=== PATIENT | female | born 1935 | race Caucasian/White ===

== ENCOUNTER 2016-10-05 07:23 | Emergency (ER) | payer OTHER, MEDICARE ==
[~2016-10-05] VITALS: Ht 162.6 cm; Wt 63.1 kg
[~2016-10-05 07:23] MED LIST: ACET-1256 PO; CYAN10004 PO; EFFSR150 PO; LEVO100T PO; METR500T PO; MULT-506 PO; NRNUNK PO; PANT40TA PO; PRED-301 PO; SIMV20TA2 PO; [UNRECOGNIZED DRUG - OTHER] PO
[2016-10-05 07:25] VITALS: Ht 162.6 cm; Wt 63.1 kg
[2016-10-05] MEDS ORDERED: BISA10SU38 PR (08:27)
[2016-10-05] MEDS ORDERED: SALI0.6510 NAE (08:27)
[2016-10-05] MEDS ORDERED: CHOL100010 PO (08:27)
[2016-10-05] MEDS ORDERED: CYCL0.052 OP (08:27)
[2016-10-05] MEDS ORDERED: LEVO88TA PO (08:27)
[2016-10-05] MEDS ORDERED: LOSA1TAB PO (08:27)
[2016-10-05] MEDS ORDERED: FLV400 PO (08:27)
[2016-10-05] MEDS ORDERED: SIMV40TA4 PO (08:27)
[2016-10-05] MEDS ORDERED: ASCA500 PO (08:27)
[2016-10-05] MEDS ORDERED: CYAN1TAB2 PO (08:27)
[2016-10-05] MEDS ORDERED: SIME1CAP37 PO (08:27)
[2016-10-05] MEDS ORDERED: CALC1CHW2 PO (08:27)
[2016-10-05] MEDS ORDERED: PRD/1 PO (08:27)
[2016-10-05] MEDS ORDERED: VENL150T33 PO (08:27)
[2016-10-05] MEDS ORDERED: BUDE32SU3 NAE (08:27)
[2016-10-05] MEDS ORDERED: OPTIRAY 320 IV PRN (08:45)
[2016-10-05 08:55] LABS: BASO % 0.5 %; BASO ABS # 0.03 K/uL (0-0.2); COMPLETE YES; EOS % 2.4 %; HEMATOCRIT 42.6 % (37-47); IG% 0.3 %; LYMPH % 18.4 %; LYMPH ABS # 1.14 K/uL (1.2-3.4); MEAN CELL VOLUME 95.9 fL (80-100); MEAN CORPUSCULAR HEMOGLOBIN 31.8 pg (25-34); MEAN CORPUSCULAR HGB CONC 33.1 g/dl (32-36); MEAN PLATELET VOLUME 10.8 fL (7.4-10.4); MONO % 9.7 %; NEUT % 68.7 %; PLATELET COUNT 218 K/uL (130-400); RED BLOOD COUNT 4.44 M/uL (4.2-5.4); WHITE BLOOD COUNT 6.21 K/uL (4.8-10.8)
[2016-10-05 09:13] LABS: ALT/SGPT 20 U/L (12-78); BLOOD UREA NITROGEN 11 mg/dl (7-18); BUN/CREATININE RATIO 11.3 (10-20); CALCIUM 9.7 mg/dl (8.5-10.1); CARBON DIOXIDE 31 mmol/L (21-32); CHLORIDE 105 mmol/L (98-107); GLUCOSE 84 mg/dl (70-99); POTASSIUM 3.5 mmol/L (3.5-5.1); SODIUM 141 mmol/L (136-145)
[2016-10-05 09:16] LABS: PROTHROMBIN TIME (PATIENT) 10.3 SECONDS (9.0-12.0)
[2016-10-05 09:17] LABS: ALB/GLOB RATIO 0.9 (0.9-2); ALKALINE PHOSPHATASE 76 U/L (45-117); AST/SGOT 14 U/L (15-37)
[2016-10-05 09:35] LABS: URINE APPEARANCE CLOUDY (CLEAR); URINE COLOR DK YELLOW; URINE NITRITE NEG (NEG); URINE SPECIFIC GRAVITY 1.022 (1.000-1.030); UROBILINOGEN NEG (NEG)
[2016-10-05 09:40] LABS: MANUAL MICROSCOPIC REQUIRED? NO; REVIEW REQ? YES; URINE BILIRUBIN NEG (NEG)
[2016-10-05 09:54] LABS: URINE MUCUS PRESENT (NONE PRSENT); URINE PATH CASTS 0-3 GRANULAR CASTS /lpf (0)
--- NOTE | 2016-10-05 11:00 | DIAGNOSTIC IMAGING REPORT ---
CT OF THE ABDOMEN AND PELVIS WITH CONTRAST CLINICAL HISTORY: Abdominal pain and constipation. Diverticulitis. COMPARISON STUDY: CT of the abdomen and pelvis June 12, 2011. TECHNIQUE: Following IV administration of 93 mL of Optiray-320, axial images of the abdomen and pelvis were obtained from the lung bases to the proximal femurs. Images were reviewed in the axial, sagittal, and coronal planes. IV contrast was administered without complication. Oral contrast was administered. CT DOSE: 293.27 mGy.cm FINDINGS: Visualized portions of the lower chest demonstrate stable mild dilatation of visualized portions of the ascending aorta, measuring 3.8 cm. A few subcentimeter hypodense hepatic lesions are too small to characterize but were present on prior exams and are considered benign. The spleen, adrenal glands, kidneys and pancreas are normal. There is no evidence for a bowel obstruction. There is extensive sigmoid diverticulosis without evidence of acute diverticulitis. The appendix is not visualized. No suspicious skeletal lesions are identified. There is no hydronephrosis. Evaluation of the upper abdomen is mildly compromised by motion artifact. There is moderate atherosclerotic plaque of the abdominal aorta. Major mesenteric vessels appear patent. Sensitivity for detection of bowel mucosal lesions is decreased given CT technique but none are identified. IMPRESSION: 1. No acute process within the abdomen or pelvis. 2. Colonic diverticulosis without evidence for acute diverticulitis. 3. No bowel obstruction. 4. No significant fecal retention. Electronically signed by: Patrice Short M.D. 10/05/2016 10:58 AM Dictated Date/Time: 10/05/2016 10:48 AM
[2016-10-05] MEDS ORDERED: CEFTRIAXONE SOD INJ 1 GM ADDVIAL IV STA (11:44)
--- NOTE | 2016-10-05 12:09 | EMERGENCY ROOM VISIT NOTE ---
History Report prepared by Kassi: Jamarcus Levi Under the Supervision of: Dr. Arleen Mcgee D.O. First contact with patient: 07:38 Chief Complaint: GI ASSESSMENT Stated Complaint: BLOCKED BOWEL,DIVERICULITIS Nursing Triage Summary: No BM since September 29, has tried several medications without luck. Today when pt urinated she noticed blood, unsure if vaginal or urinary in nature. C/O " outside of vagina pain". History of Present Illness The patient is a 81 year old female who presents to the Emergency Room with complaints of constant constipation starting September 29. The patient states that she has a history of Diverticulitis and had been experiencing abdominal pain on September 29. She states that she called her primary care physician, Dr. Lira , the following day, but admits that she could not get an appointment until October 01. The patient reports that during her visit she had x rays and blood work done, which showed normal blood work and constipation. The patient states that she went on a liquid diet for 2-3 days following her appointment, per Dr. Lira's suggestion, until her abdominal pain ceased. The patient also reports that she has taken Gas-x and Bisac-Evac but denies any relief of symptoms. She states that since yesterday she has been experiencing hematuria and genital pain. The patient reports that she has a chronic abdominal bloating , which she has had CT scans and ultrasounds done for it, but they showed no significant results. She states that she has congestion in her head and has been experiencing a cough for years. The patient admits that she had an appendectomy at age 9. She states that she typically wears a pad due to urinary leakage. The patient denies previous constipation, fevers chills, change in appetite, nausea, and SOB. Source of History: patient Onset: September 29 Position: abdomen Quality: other (constipation) Timing: constant Modifying Factors (Relieving): other (Gas-X, Bivac-Evac) Associated Symptoms: + cough, + urinary symptoms, No fevers, No chills, No SOB, No nausea, No vomiting Review of Systems See HPI for pertinent positives & negatives. A total of 10 systems reviewed and were otherwise negative. Past Medical & Surgical Medical Problems: (1) Chronic cough (2) Depression (3) Hemorrhoids (4) Hypothyroid (5) IBS (irritable bowel syndrome) (6) Polymyalgia rheumatica Surgical Problems: (1) History of appendectomy Family History Arrhythmia FH: colon cancer FH: diabetes mellitus FH: heart disease FH: myocardial infarction FHx: dementia GERD Social History Smoking Status: Never Smoker Smokeless Tobacco Use: No Alcohol Use: none Drug Use: none Marital Status: Housing Status: lives with significant other Occupation Status: retired Current/Historical Medications Scheduled Ascorbic Acid (Vitamin C), 500 MG PO DAILY Budesonide (Nasal) (Budesonide Nasal [place]), 2 SPRAYS ROB DAILY Calcium Carbonate-Vitamin D (Caltrate 600+D 600-400 mg-Unit), 1 TAB PO DIRECTED Cephalexin (Keflex), 1 CAP PO BID Cholecalciferol (Vitamin D), 1,000 UNITS PO DAILY Cyanocobalamin (B-12), 100 MCG PO DAILY Cyclosporine (Ophth) (Restasis), 1 DROP OP DIRECTED Folic Acid (Folic Acid), 400 MCG PO DIRECTED Levothyroxine Sodium (Synthroid), 88 MCG PO DAILY Losartan Potassium (Cozaar), 12.5 MG PO DAILY Multivitamin (Multivitamin), 1 TAB PO DAILY Pantoprazole (Protonix), 40 MG PO DAILY Prednisone (Prednisone), 3-4 MG PO DAILY Simvastatin (Zocor), 40 MG PO QPM Venlafaxine Hcl (Venlafaxine Hcl Er), 150 MG PO DAILY Scheduled PRN Acetaminophen (Tylenol), 500 MG PO Q8 PRN for Pain or Fever Bisacodyl (Dulcolax), 1 SUPP DC DAILY PRN for Constipation Saline (Edmunds Nasal [place]), 2 SPRAYS ROB DIRECTED PRN for DRYNESS/CONGESTION Simethicone (Simethicone Extra Strengt 125 mg), 125 MG PO QID PRN for Gas or Constipation Allergies Coded Allergies: Gabapentin (Verified Allergy, Severe, VIVID DREAMS & NIGHTMARES, 10/05/16) Adhesives (Verified Allergy, Intermediate, RASH, 10/05/16) Bupropion (Verified Allergy, Intermediate, "DIZZINESS", 10/05/16) Fluticasone (Verified Allergy, Intermediate, "SHAKINESS", 10/05/16) Latex1 -Allergic Contact Dermititis (Verified Allergy, Intermediate, ITCHINESS, 10/05/16) Oxycodone (Verified Allergy, Intermediate, NAUSEA/VOMITING, 10/05/16) Hydrochlorothiazide (Verified Allergy, Unknown, UNKNOWN, 10/05/16) Propoxyphene (Verified Allergy, Unknown, RASH-ITCHY, 10/05/16) Physical Exam Vital Signs Date Time Temp Pulse Resp B/P (MAP) Pulse Ox O2 Delivery O2 Flow Rate FiO2 10/05/16 12:41 36.5 85 18 125/75 96 10/05/16 12:40 85 18 125/75 96 Room Air 10/05/16 10:05 87 18 134/70 96 Room Air 10/05/16 07:25 36.5 107 18 126/74 93 Room Air Physical Exam GENERAL: alert, well appearing, well nourished, no distress, non-toxic EYE EXAM: normal conjunctiva, PERRL and EOM's grossly intact OROPHARYNX: no exudate, no erythema, lips, buccal mucosa, and tongue normal and mucous membranes are moist NECK: supple, no nuchal rigidity, no adenopathy, non-tender LUNGS: Clear to auscultation. Normal chest wall mechanics HEART: no murmurs, S1 normal and S2 normal ABDOMEN: Tympanic to percussion. abdomen soft, non-tender, normo-active bowel sounds, no masses, no rebound or guarding. BACK: Back is symmetrical on inspection and there is no deformity, no midline tenderness, no CVA tenderness. SKIN: no rashes and no bruising UPPER EXTREMITIES: upper extremities are grossly normal. LOWER EXTREMITIES: No pitting edema. NEURO EXAM: Normal sensorium, cranial nerves II-XII grossly intact, normal speech, no gross weakness of arms, no gross weakness of legs. No drift. Finger to nose intact. Gross sensation intact. Medical Decision & Procedures ER Provider Diagnostic Interpretation: CT scan: Radiology provided the following report CT CT OF THE ABDOMEN AND PELVIS WITH CONTRAST CLINICAL HISTORY: Abdominal pain and constipation. Diverticulitis. COMPARISON STUDY: CT of the abdomen and pelvis June 12, 2011. TECHNIQUE: Following IV administration of 93 mL of Optiray-320, axial images of the abdomen and pelvis were obtained from the lung bases to the proximal femurs. Images were reviewed in the axial, sagittal, and coronal planes. IV contrast was administered without complication. Oral contrast was administered. CT DOSE: 293.27 mGy.cm FINDINGS: Visualized portions of the lower chest demonstrate stable mild dilatation of visualized portions of the ascending aorta, measuring 3.8 cm. A few subcentimeter hypodense hepatic lesions are too small to characterize but were present on prior exams and are considered benign. The spleen, adrenal glands, kidneys and pancreas are normal. There is no evidence for a bowel obstruction. There is extensive sigmoid diverticulosis without evidence of acute diverticulitis. The appendix is not visualized. No suspicious skeletal lesions are identified. There is no hydronephrosis. Evaluation of the upper abdomen is mildly compromised by motion artifact. There is moderate atherosclerotic plaque of the abdominal aorta. Major mesenteric vessels appear patent. Sensitivity for detection of bowel mucosal lesions is decreased given CT technique but none are identified. IMPRESSION: 1. No acute process within the abdomen or pelvis. 2. Colonic diverticulosis without evidence for acute diverticulitis. 3. No bowel obstruction. 4. No significant fecal retention. Electronically signed by: Patrice Short M.D. 10/05/2016 10:58 AM Dictated Date/Time: 10/05/2016 10:48 AM Laboratory Results 10/05/16 08:30 Red Blood Count 4.44, Mean Corpuscular Volume 95.9, Mean Corpuscular Hemoglobin 31.8, Mean Corpuscular Hemoglobin Concent 33.1, Mean Platelet Volume 10.8, Neutrophils (%) (Auto) 68.7, Lymphocytes (%) (Auto) 18.4, Monocytes (%) (Auto) 9.7, Eosinophils (%) (Auto) 2.4, Basophils (%) (Auto) 0.5, Neutrophils # (Auto) 4.27, Lymphocytes # (Auto) 1.14, Monocytes # (Auto) 0.60, Eosinophils # (Auto) 0.15, Basophils # (Auto) 0.03 10/05/16 08:30 Test 10/05/16 08:30 10/05/16 09:15 White Blood Count 6.21 K/uL (4.8-10.8) Red Blood Count 4.44 M/uL (4.2-5.4) Hemoglobin 14.1 g/dL (12.0-16.0) Hematocrit 42.6 % (37-47) Mean Corpuscular Volume 95.9 fL (80-100) Mean Corpuscular Hemoglobin 31.8 pg (25-34) Mean Corpuscular Hemoglobin Concent 33.1 g/dl (32-36) Platelet Count 218 K/uL (130-400) Mean Platelet Volume 10.8 fL (7.4-10.4) Neutrophils (%) (Auto) 68.7 % Lymphocytes (%) (Auto) 18.4 % Monocytes (%) (Auto) 9.7 % Eosinophils (%) (Auto) 2.4 % Basophils (%) (Auto) 0.5 % Neutrophils # (Auto) 4.27 K/uL (1.4-6.5) Lymphocytes # (Auto) 1.14 K/uL (1.2-3.4) Monocytes # (Auto) 0.60 K/uL (0.11-0.59) Eosinophils # (Auto) 0.15 K/uL (0-0.5) Basophils # (Auto) 0.03 K/uL (0-0.2) RDW Standard Deviation 45.6 fL (36.4-46.3) RDW Coefficient of Variation 13.1 % (11.5-14.5) Immature Granulocyte % (Auto) 0.3 % Immature Granulocyte # (Auto) 0.02 K/uL (0.00-0.02) Prothrombin Time 10.3 SECONDS (9.0-12.0) Prothromb Time International Ratio 1.0 (0.9-1.1) Anion Gap 5.0 mmol/L (3-11) Est Creatinine Clear Calc Drug Dose 37.5 ml/min Estimated GFR () 60.8 Estimated GFR (Non- 52.4 BUN/Creatinine Ratio 11.3 (10-20) Lactic Acid Level 1.3 mmol/L (0.4-2.0) Calcium Level 9.7 mg/dl (8.5-10.1) Total Bilirubin 0.5 mg/dl (0.2-1) Aspartate Amino Transf (AST/SGOT) 14 U/L (15-37) Alanine Aminotransferase (ALT/SGPT) 20 U/L (12-78) Alkaline Phosphatase 76 U/L (45-117) Troponin I < 0.015 ng/ml (0-0.045) Total Protein 7.3 gm/dl (6.4-8.2) Albumin 3.5 gm/dl (3.4-5.0) Globulin 3.8 gm/dl (2.5-4.0) Albumin/Globulin Ratio 0.9 (0.9-2) Lipase 151 U/L (73-393) Urine Color DK YELLOW Urine Appearance CLOUDY (CLEAR) Urine pH 6.0 (4.5-7.5) Urine Specific [place] 1.022 (1.000-1.030) Urine Protein 1+ (NEG) Urine Glucose (UA) NEG (NEG) Urine Ketones TRACE (NEG) Urine Occult Blood NEG (NEG) Urine Nitrite NEG (NEG) Urine Bilirubin NEG (NEG) Urine Urobilinogen NEG (NEG) Urine Leukocyte Esterase SMALL (NEG) Urine WBC (Auto) 10-30 /hpf (0-5) Urine RBC (Auto) 0-4 /hpf (0-4) Urine Hyaline Casts (Auto) >30 /lpf (0-5) Urine Epithelial Cells (Auto) 5-10 /lpf (0-5) Urine Bacteria (Auto) 1+ (NEG) Urine Renal Epithelial Cells /lpf (0-5) Urine Pathogenic Casts 0-3 GRANULAR CASTS /lpf (0) Urine Mucus PRESENT (NONE PRSENT) Laboratory results per my review. Medications Administered Medications (Trade) Dose Ordered Sig/Pauline Route Start Time Stop Time Status Last Admin Dose Admin Ceftriaxone Sodium (Rocephin Inj) 1 gm NOW STAT IV 10/05/16 11:44 10/05/16 11:45 DC 10/05/16 12:22 1 GM ECG Indication: abdominal pain Rate (beats per minute): 84 Rhythm: normal sinus Findings: no acute ischemic change, no ectopy, other (normal axis) ED Course 0739: The patient was evaluated in room A02. A complete history and physical exam was performed. 0845: Ioversol 111 ml IV. 1143: Upon reevaluation, the patient is feeling better. I discussed the findings and the treatment plan with the patient. She verbalizes agreement and understanding. She was discharged home. 1144: Recephin Injection 1 gm IV. Medical Decision Differential diagnoses includes but is not limited to gastritis, peptic ulcer disease, GERD, gallbladder disease, pancreatitis, small bowel obstruction, acute coronary syndrome, pericarditis, ischemic bowel, irritable bowel disease, irritable bowel syndrome, appendicitis, diverticulitis, malignancy, hernia, urinary tract infection, torsion, perforation, trauma, infectious. Medication Reconciliation: I attest that I have personally reviewed the patient' s current medication list. Blood pressure screening: Patient was found to have an elevated blood pressure and was referred to their primary doctor for recheck and further treatment. Patient well-appearing here despite complaints. Given history and persistence of symptoms, discussed with patient labs and imaging. Labs and imaging reassuring, likely early urinary tract infection. No evidence for bacteremia/ sepsis, no evidence for other acute GI or vascular pathology. No evidence for pyelonephritis, obstructive uropathy, kidney stone. Patient's vital signs stable, discussed all results with her bedside. Discussed treatment for UTI need for close follow-up as a precaution. Discussed [id number] medications and diet to help with patient's complaints of constipation. Discussed symptoms to watch and return for she verbalized understanding was agreeable with plan. Patient tolerating by mouth here without complaints or difficulty, ambulated with steady gait. Impression Primary Impression: Constipation Additional Impression: UTI (urinary tract infection) Scribe Attestation The scribe's documentation has been prepared under my direction and personally reviewed by me in its entirety. I confirm that the note above accurately reflects all work, treatment, procedures, and medical decision making performed by me. Departure Information Dispostion Home / Self-Care Prescriptions Cephalexin (KEFLEX) 500 Mg Cap 1 CAP PO BID for 7 Days, #14 CAP Prov: Arleen Mcgee, 10/05/16 Referrals Mariah Faustni M.D. (PCP) Forms HOME CARE DOCUMENTATION FORM, IMPORTANT VISIT INFORMATION Patient Instructions My [facility] Additional Instructions Please call and follow up with her family doctor this week to recheck your symptoms and sure you are improving. Please take the antibiotic as prescribed. Please continue using her MiraLAX to help prevent any additional constipation. If you develop any abdominal pain, noticed black or bloody stools , develop fevers or chills, vomiting, or you have any other new concerns please return the emergency room. Problem Qualifiers Primary Impression: Constipation Constipation type: unspecified constipation type Qualified Codes: K59.00 - Constipation, unspecified Additional Impression: UTI (urinary tract infection) Urinary tract infection type: acute cystitis Hematuria presence: without hematuria Qualified Codes: N30.00 - Acute cystitis without hematuria
[2016-10-05] MEDS ORDERED: CEPH-571 PO (12:12)
[2016-10-05 12:41] VITALS: BP 125/75; PULSE 85; TEMP 36.5; O2SAT 96
== END 2016-10-05 12:42 | disposition home or self-care (01) ==
LOC: C.EDB 07:25 → C.EDA 12:42
DX: K59.00 Constipation, unspecified (principal); N39.0 Urinary tract infection, site not specified; K57.92 Diverticulitis of intestine, part unspecified, without perforation or abscess without bleeding; F32.9 Major depressive disorder, single episode, unspecified; E03.9 Hypothyroidism, unspecified; K58.9 Irritable bowel syndrome, unspecified; M35.3 Polymyalgia rheumatica; Z80.0 Family history of malignant neoplasm of digestive organs; Z83.3 Family history of diabetes mellitus; Z82.49 Family history of ischemic heart disease and other diseases of the circulatory system; Z79.899 Other long term (current) drug therapy

== ENCOUNTER 2017-06-19 10:24 | Emergency (ER) | payer OTHER, MEDICARE ==
[~2017-06-19] VITALS: Ht 165.1 cm; Wt 59.1 kg
[~2017-06-19 10:24] MED LIST changes: +ASCA500 PO; +BISA10SU38 PR; +BUDE32SU3 NAE; +CALC1CHW2 PO; +CHOL100010 PO; -CYAN10004 PO; +CYAN1TAB2 PO; +CYCL0.052 OP; -EFFSR150 PO; +FLV400 PO; -LEVO100T PO; +LEVO88TA PO; +LOSA1TAB PO; -METR500T PO; -NRNUNK PO; +PRD/1 PO; -PRED-301 PO; +SALI0.6510 NAE; +SIME1CAP37 PO; -SIMV20TA2 PO; +SIMV40TA4 PO; +VENL150T33 PO; -[UNRECOGNIZED DRUG - OTHER] PO
[2017-06-19 10:35] VITALS: TEMP 36.6; Ht 165.1 cm; Wt 59.1 kg
[2017-06-19] MEDS ORDERED: SODIUM CHLORIDE 0.9% 1000ML 1,000 ML IV STA ×2 (10:54→14:55)
[2017-06-19 11:35] VITALS: O2SAT 95
[2017-06-19 12:08] LABS: BASO % 0.3 %; BASO ABS # 0.02 K/uL (0-0.2); EOS % 1.6 %; EOS ABS # 0.09 K/uL (0-0.5); HEMATOCRIT 42.5 % (37-47); IG# 0.02 K/uL (0.00-0.02); LYMPH % 18.4 %; LYMPH ABS # 1.06 K/uL (1.2-3.4); MEAN CELL VOLUME 95.1 fL (80-100); MEAN CORPUSCULAR HEMOGLOBIN 33.6 pg (25-34); MEAN CORPUSCULAR HGB CONC 35.3 g/dl (32-36); MEAN PLATELET VOLUME 11.1 fL (7.4-10.4); MONO % 8.5 %; MONO ABS # 0.49 K/uL (0.11-0.59); NEUT % 70.9 %; NEUT ABS # 4.08 K/uL (1.4-6.5); PLATELET COUNT 174 K/uL (130-400); RED CELL DISTRIBUTION WIDTH CV 13.3 % (11.5-14.5); WHITE BLOOD COUNT 5.76 K/uL (4.8-10.8)
[2017-06-19 12:25] LABS: ALBUMIN 3.7 gm/dl (3.4-5.0); ALT/SGPT 23 U/L (12-78); AST/SGOT 16 U/L (15-37); BLOOD UREA NITROGEN 14 mg/dl (7-18); CALCIUM 8.9 mg/dl (8.5-10.1); CARBON DIOXIDE 27 mmol/L (21-32); CREATININE 0.83 mg/dl (0.60-1.20); GLUCOSE 93 mg/dl (70-99); LIPASE 128 U/L (73-393); POTASSIUM 3.2 mmol/L (3.5-5.1); SODIUM 139 mmol/L (136-145)
[2017-06-19 12:30] LABS: ALKALINE PHOSPHATASE 70 U/L (45-117); TOTAL PROTEIN 7.3 gm/dl (6.4-8.2)
--- NOTE | 2017-06-19 12:31 | DIAGNOSTIC IMAGING REPORT ---
CHEST ONE VIEW PORTABLE CLINICAL HISTORY: CHEST PAIN dyspnea COMPARISON STUDY: 01/16/2010 FINDINGS: The bones soft tissues and hemidiaphragms are normal. The cardiomediastinal silhouette is normal. The lungs are clear. The pulmonary vasculature is normal. IMPRESSION: Negative chest. The above report was generated using voice recognition software. It may contain grammatical, syntax or spelling errors. Electronically signed by: Harsh Marin M.D. 06/19/2017 12:29 PM Dictated Date/Time: 06/19/2017 12:21 PM
[2017-06-19] MEDS ORDERED: ASPI81TA28 PO (12:55)
--- NOTE | 2017-06-19 14:03 | DIAGNOSTIC IMAGING REPORT ---
BRAIN WITHOUT CONTRAST CLINICAL HISTORY: 82 years-old Female presenting with confusion, memory loss, blackouts. TECHNIQUE: Multisequence, multiplanar MR imaging of the brain was performed without the use of intravenous contrast. IV contrast: None. COMPARISON: None. FINDINGS: Proportional ventricular and sulcal prominence, likely age-related parenchymal volume loss. T1 hyperintense, T2 hyperintense intra-axial collection in the left occipital lobe with surrounding vasogenic edema. This restricted diffusion. A thin rim of T2 hypointensity noted, possibly hemosiderin. Additionally, scattered subcortical white matter and periventricular T-2/flair hyperintensities likely chronic small vessel ischemic change. No mass effect or midline shift. No acute ischemia. No extra-axial fluid collection. T2 skull base flow voids preserved. Postcontrast imaging was not performed. Bone marrow signal intensity within the calvarium within normal limits. IMPRESSION: 1. Findings most consistent with a subacute intraparenchymal hematoma in the left occipital lobe (signal characteristics most consistent with extracellular methemoglobin). Given the patient's age, this could relate to amyloid angiopathy, hypertension, or an underlying neoplasm/metastasis. Follow-up contrast enhanced MRI to be considered. 2. Chronic small vessel ischemic change. The report will be called/faxed according to standard departmental protocol. Electronically signed by: Price Johnson M.D. 06/19/2017 2:02 PM Dictated Date/Time: 06/19/2017 1:53 PM
[2017-06-19] MEDS ORDERED: LEVETIRACETAM IV 500 MG in DEXTROSE 5% 100ML 100 ML IV STA (14:39)
[2017-06-19] MEDS ORDERED: DEXAMETHASONE **PF** INJ 10 MG/ML VIAL IV ONE (14:45)
--- NOTE | 2017-06-19 15:47 | EMERGENCY ROOM VISIT NOTE ---
History Report prepared by Kassi: Kassie Braswell Under the Supervision of: Dr. Jair Ontiveros M.D. First contact with patient: 10:52 Chief Complaint: SYNCOPE Stated Complaint: MEMORY LOSS, BLACKOUTS History of Present Illness The patient is an 82 year old female who presents to the Emergency Room with complaints of persistent confusion starting a couple weeks ago. The patient's son has noticed that she has been more fatigued and depressed for the past month. She has a history of depression. She had some difficulty waking up last week, but was able to get up. She went downstairs and did not remember how to use the TV or the phone. She has never experienced confusion in the past. She has seen her PCP and has been scheduled for an MRI and ultrasound. Last week, the patient went to [facility] to have her depression medications refilled and was unable to recall the information to fill out the forms. They suggested that she move up the dates of her imaging studies. She was sent to the ED when they were unable to move up the date. She has not been eating well recently. The patient had some trouble falling asleep last night. She also reports hallucinating an intermittent banging in her ears last night. Source of History: patient, family Onset: couple weeks ago Position: other (mental status) Quality: other (confusion) Timing: other (persistent) Associated Symptoms: + fatigue Note: Pt reports depression, auditory hallucinations, decreased appetite, difficulty falling asleep. Review of Systems See HPI for pertinent positives and negatives. A total of ten systems were reviewed and were otherwise negative. Past Medical & Surgical Medical Problems: (1) Chronic cough (2) Depression (3) Hemorrhoids (4) Hypothyroid (5) IBS (irritable bowel syndrome) (6) Polymyalgia rheumatica Surgical Problems: (1) History of appendectomy Family History Arrhythmia FH: colon cancer FH: diabetes mellitus FH: heart disease FH: myocardial infarction FHx: dementia GERD Social History Smoking Status: Never Smoker Alcohol Use: none Drug Use: none Housing Status: lives with family Occupation Status: retired Current/Historical Medications Scheduled Ascorbic Acid (Vitamin C), 500 MG PO DAILY Aspirin (Aspirin Ec), 81 MG PO DAILY Budesonide (Nasal) (Budesonide Nasal [place]), 2 SPRAYS ROB DAILY Calcium Carbonate-Vitamin D (Caltrate 600+D 600-400 mg-Unit), 1 TAB PO BIDM Cholecalciferol (Vitamin D), 1,000 UNITS PO DAILY Cyanocobalamin (B-12), 100 MCG PO DAILY Cyclosporine (Ophth) (Restasis), 1 DROP OP BID Folic Acid (Folic Acid), 400 MCG PO DAILY Levothyroxine Sodium (Synthroid), 88 MCG PO DAILY Losartan Potassium (Cozaar), 12.5 MG PO DAILY Multivitamin (Multivitamin), 1 TAB PO DAILY Pantoprazole (Protonix), 40 MG PO DAILY Prednisone (Prednisone), 3-4 MG PO DAILY Simvastatin (Zocor), 40 MG PO QPM Venlafaxine Hcl (Venlafaxine Hcl Er), 150 MG PO DAILY Scheduled PRN Acetaminophen (Tylenol), 500 MG PO Q8 PRN for Pain or Fever Bisacodyl (Dulcolax), [address] SU[address] [place] DAILY PRN for Constipation Saline ([place] Nasal [place]), 2 SPRAYS ROB DIRECTED PRN for DRYNESS/CONGESTION Simethicone (Simethicone Extra Strengt 125 mg), 125 MG PO QID PRN for Gas or Constipation Allergies Coded Allergies: Gabapentin (Verified Allergy, Severe, V[facility] [employer] N[employer]MARES, 06/19/17) Adhesives (Verified Allergy, Intermediate, RASH, 06/19/17) Bupropion (Verified Allergy, Intermediate, "DIZZINESS", 06/19/17) Fluticasone (Verified Allergy, Intermediate, "SHAKINESS", 06/19/17) Latex1 -Allergic Contact Dermititis (Verified Allergy, Intermediate, ITCHINESS, 06/19/17) Oxycodone (Verified Allergy, Intermediate, NAUSEA/VOMITING, 06/19/17) Hydrochlorothiazide (Verified Allergy, Unknown, UNKNOWN, 06/19/17) Propoxyphene (Verified Allergy, Unknown, RASH-ITCHY, 06/19/17) Physical Exam Vital Signs Date Time Temp Pulse Resp B/P (MAP) Pulse Ox O2 Delivery O2 Flow Rate FiO2 06/19/17 18:00 96 18 148/80 96 Room Air 06/19/17 17:35 97 18 155/78 93 Room Air 06/19/17 16:52 93 18 167/85 95 Room Air 06/19/17 15:05 105 18 159/88 99 Room Air 06/19/17 13:13 99 20 156/94 95 Room Air 06/19/17 11:38 95 16 184/95 94 Room Air 06/19/17 11:35 95 Room Air 06/19/17 10:35 36.6 120 17 137/86 96 Room Air Physical Exam GENERAL: Awake, fatigued-appearing, in no distress HENT: Normocephalic, atraumatic. Dry mucous membranes. EYES: Normal conjunctiva. Sclera non-icteric. NECK: Supple. No nuchal rigidity. FROM. No JVD. RESPIRATORY: Clear to auscultation. CARDIAC: Regular rate, normal rhythm. Extremities warm and well perfused. Pulses equal. ABDOMEN: Soft, non-distended. No tenderness to palpation. No rebound or guarding. No masses. RECTAL: Deferred. MUSCULOSKELETAL: Chest examination reveals no tenderness. The back is symmetrical on inspection without obvious abnormality. There is no CVA tenderness to palpation. No joint edema. LOWER EXTREMITIES: Calves are equal size bilaterally and non-tender. No edema. No discoloration. NEURO: Normal sensorium. No sensory or motor deficits noted. Normal cerebellar function with [id number], alternating palms, [id number]. +Psychomotor retardation. SKIN: No rash or jaundice noted. Medical Decision & Procedures ER Provider Diagnostic Interpretation: Radiology results as stated below per my review and radiologist interpretation: CHEST ONE VIEW PORTABLE CLINICAL HISTORY: CHEST PAIN dyspnea COMPARISON STUDY: 01/16/2010 FINDINGS: The bones soft tissues and hemidiaphragms are normal. The cardiomediastinal silhouette is normal. The lungs are clear. The pulmonary vasculature is normal. IMPRESSION: Negative chest. The above report was generated using voice recognition software. It may contain grammatical, syntax or spelling errors. Electronically signed by: Harsh Marin M.D. 06/19/2017 12:29 PM Dictated Date/Time: 06/19/2017 12:21 PM BRAIN WITHOUT CONTRAST CLINICAL HISTORY: 82 years-old Female presenting with confusion, memory loss, blackouts. TECHNIQUE: Multisequence, multiplanar MR imaging of the brain was performed without the use of intravenous contrast. IV contrast: None. COMPARISON: None. FINDINGS: Proportional ventricular and sulcal prominence, likely age-related parenchymal volume loss. T1 hyperintense, T2 hyperintense intra-axial collection in the left occipital lobe with surrounding vasogenic edema. This restricted diffusion. A thin rim of T2 hypointensity noted, possibly hemosiderin. Additionally, scattered subcortical white matter and periventricular T-2/flair hyperintensities likely chronic small vessel ischemic change. No mass effect or midline shift. No acute ischemia. No extra-axial fluid collection. T2 skull base flow voids preserved. Postcontrast imaging was not performed. Bone marrow signal intensity within the calvarium within normal limits. IMPRESSION: 1. Findings most consistent with a subacute intraparenchymal hematoma in the left occipital lobe (signal characteristics most consistent with extracellular methemoglobin). Given the patient's age, this could relate to amyloid angiopathy, hypertension, or an underlying neoplasm/metastasis. Follow-up contrast enhanced MRI to be considered. 2. Chronic small vessel ischemic change. The report will be called/faxed according to standard departmental protocol. Electronically signed by: Price Johnson M.D. 06/19/2017 2:02 PM Dictated Date/Time: 06/19/2017 1:53 PM Laboratory Results 06/19/17 11:55 Red Blood Count 4.47, Mean Corpuscular Volume 95.1, Mean Corpuscular Hemoglobin 33.6, Mean Corpuscular Hemoglobin Concent 35.3, Mean Platelet Volume 11.1, Neutrophils (%) (Auto) 70.9, Lymphocytes (%) (Auto) 18.4, Monocytes (%) (Auto) 8.5, Eosinophils (%) (Auto) 1.6, Basophils (%) (Auto) 0.3, Neutrophils # (Auto) 4.08, Lymphocytes # (Auto) 1.06, Monocytes # (Auto) 0.49, Eosinophils # (Auto) 0.09, Basophils # (Auto) 0.02 06/19/17 11:55 Test 06/19/17 11:55 White Blood Count 5.76 K/uL (4.8-10.8) Red Blood Count 4.47 M/uL (4.2-5.4) Hemoglobin 15.0 g/dL (12.0-16.0) Hematocrit 42.5 % (37-47) Mean Corpuscular Volume 95.1 fL (80-100) Mean Corpuscular Hemoglobin 33.6 pg (25-34) Mean Corpuscular Hemoglobin Concent 35.3 g/dl (32-36) Platelet Count 174 K/uL (130-400) Mean Platelet Volume 11.1 fL (7.4-10.4) Neutrophils (%) (Auto) 70.9 % Lymphocytes (%) (Auto) 18.4 % Monocytes (%) (Auto) 8.5 % Eosinophils (%) (Auto) 1.6 % Basophils (%) (Auto) 0.3 % Neutrophils # (Auto) 4.08 K/uL (1.4-6.5) Lymphocytes # (Auto) 1.06 K/uL (1.2-3.4) Monocytes # (Auto) 0.49 K/uL (0.11-0.59) Eosinophils # (Auto) 0.09 K/uL (0-0.5) Basophils # (Auto) 0.02 K/uL (0-0.2) RDW Standard Deviation 46.0 fL (36.4-46.3) RDW Coefficient of Variation 13.3 % (11.5-14.5) Immature Granulocyte % (Auto) 0.3 % Immature Granulocyte # (Auto) 0.02 K/uL (0.00-0.02) Prothrombin Time 10.4 SECONDS (9.0-12.0) Prothromb Time International Ratio 1.0 (0.9-1.1) Anion Gap 7.0 mmol/L (3-11) Est Creatinine Clear Calc Drug Dose 46.2 ml/min Estimated GFR () 75.6 Estimated GFR (Non- 65.2 BUN/Creatinine Ratio 16.6 (10-20) Calcium Level 8.9 mg/dl (8.5-10.1) Total Bilirubin 0.5 mg/dl (0.2-1) Direct Bilirubin 0.1 mg/dl (0-0.2) Aspartate Amino Transf (AST/SGOT) 16 U/L (15-37) Alanine Aminotransferase (ALT/SGPT) 23 U/L (12-78) Alkaline Phosphatase 70 U/L (45-117) Troponin I < 0.015 ng/ml (0-0.045) Total Protein 7.3 gm/dl (6.4-8.2) Albumin 3.7 gm/dl (3.4-5.0) Lipase 128 U/L (73-393) Laboratory results reviewed by me Medications Administered Medications (Trade) Dose Ordered Sig/Pauline Route Start Time Stop Time Status Last Admin Dose Admin Sodium Chloride 1,000 ml @ 999 mls/hr Q1H1M STAT IV 06/19/17 10:54 06/19/17 11:54 DC 06/19/17 11:55 999 MLS/HR Dexamethasone Sodium Phosphate (Dexamethasone Inj Pf) 10 mg NOW ONCE IV 06/19/17 14:45 06/19/17 14:46 DC 06/19/17 15:22 10 MG Levetiracetam 500 mg/Dextrose 105 ml @ 420 mls/hr NOW STAT IV 06/19/17 14:39 06/19/17 14:53 DC 06/19/17 15:18 420 MLS/HR Sodium Chloride 1,000 ml @ 125 mls/hr Q8H STAT IV 06/19/17 14:55 06/19/17 19:27 DC 06/19/17 15:26 125 MLS/HR ECG Per My Interpretation Indication: altered mental status Rate (beats per minute): 95 Rhythm: normal sinus Findings: no acute ischemic change, other (normal axis) ED Course 1053: The patient was evaluated in room A10. A complete history and physical exam was performed. 1414: Upon reexamination, the patient was stable. I discussed the test results and treatment plan with her and her son. [place] [facility] [place]. 1448: I discussed the patient's case with Dr. Ayala, [facility] [place] He has accepted the patient for transfer. Medical Decision I reviewed the patient's past medical history, medications, and the nursing notes as described above. Differential diagnosis: Etiologies such as metabolic, infection, hypo/hyperglycemia, electrolyte abnormalities, cardiac sources, intracerebral event, toxicologic, neurologic, as well as others were entertained. The patient is an 82-year-old woman who presents emergency department with worsening generalized weakness and depressed mood as well as episodes of "blacking out" over the past week per hpi. Rather the patient is fatigued appearing but no acute distress, afebrile stable vital signs. She is neuro intact. Labs unremarkable. EKG without acute ischemia. Chest x-ray negative. MRI demonstrates a left occipital lobe 3 x 3 intraparenchymal hematoma with small amount of surrounding edema that raises suspicion for possible underlying malignancy. Given no neurosurgical coverage here will need transfer to higher level of care/tertiary care center. Case was discussed with Dr. Ayala, [facility] neurosurgery who accepts the patient for transfer. Agrees with plan to treat with prophylactic Keppra as well as dexamethasone. I did discuss plan to complete MRI with contrast however prefers we defer at this time as this may delay additional contrast studies they may consider. Otherwise the patient continues to have no focal neurologic deficits. Transferred via ALS ground. Medication Reconcilliation Current Medication List: was personally reviewed by me Blood Pressure Screening Patient's blood pressure: Elevated blood pressure Consults Time Called: [phone] Consulting Physician: Dr. Ayala, [facility] [place] Returned Call: [phone] I discussed the patient's case with him. He has accepted the patient for transfer. Impression Primary Impression: Intraparenchymal hemorrhage of brain Critical Care I have personally spent greater than 35 minutes of critical care time in the direct management of this patient. This includes bedside care, interpretation of diagnostic studies, and testing, discussion with consultants, patient, and family members, and other required patient management activities. This 35 minutes is in excess of all separately billable procedures. Scribe Attestation The scribe's documentation has been prepared under my direction and personally reviewed by me in its entirety. I confirm that the note above accurately reflects all work, treatment, procedures, and medical decision making performed by me. Departure Information Dispostion Transfer Acute Care Facility Referrals Hermes Lira MD (PCP) Patient Instructions My [facility]
[2017-06-19 18:00] VITALS: BP 148/80; PULSE 96; O2SAT 96
== END 2017-06-19 18:30 | disposition short-term general hospital (02) ==
LOC: C.EDB 10:28 → C.EDA 18:30
DX: I61.9 Nontraumatic intracerebral hemorrhage, unspecified (principal); F32.9 Major depressive disorder, single episode, unspecified; E03.9 Hypothyroidism, unspecified; K58.9 Irritable bowel syndrome, unspecified; Z82.49 Family history of ischemic heart disease and other diseases of the circulatory system; Z79.82 Long term (current) use of aspirin